=== PATIENT | female | born 1985 | race Caucasian/White ===

== ENCOUNTER 2019-04-06 09:47 | Day surgery (SDC) | payer OTHER ==
[2019-04-06] VITALS (8 sets, daily range): BP systolic 95–132; BP diastolic 57–68; PULSE 72–92; RESP 15–21; Ht 152.4 cm; Wt 82.0 kg
[~2019-04-06] VITALS: Ht 152.4 cm; Wt 82.0 kg
[2019-04-06] MEDS ORDERED: PEPCID (10:16)
[2019-04-06] MEDS ORDERED: ZYRTEC (10:16)
[2019-04-06] MEDS ORDERED: NOSE SPRAY (10:16)
--- NOTE | 2019-04-06 10:33 | PREAC ---
Date/Time of Note Date/Time of Note DATE: 04/06/19 TIME: 10:32 Anesthesia Eval and Record Evaluation Time Pre-Procedure Interview DATE: 04/06/19 TIME: 10:32 Age 34 Sex female NPO: 8 hrs Preoperative diagnosis abd pain Planned procedure egd Past Medical History Past Medical History: Includes GI: GERD, Obesity Surgery & Anesthesia Issues No known issue Meds Anticoagulation: No Beta Pa within 24 hr: No Reason Beta Pa not given: Pt. not on B-Pa Reported Medications [Nose [place]] No Conflict Check 04/06/19 [Pepcid] No Conflict Check 04/06/19 [Zyrtec] No Conflict Check 04/06/19 Meds reviewed: Yes Allergies Coded Allergies: No Known Allergy (Unverified , 04/06/19) Allergies Reviewed: Yes Labs/Studies Labs Reviewed: Reviewed by anesthesiologist test: Negative Pre-procedure Exam Airway: Adequate mouth opening, Adequate thyromental dist Mallampati: Mallampati II Teeth: Normal Lung: Normal Heart: Normal ASA Physical Status ASA physical status: 2 Emergency: None Planned Anesthetic General/MAC: Mask, MAC Pre-operative Attestations Prior to commencing anesthesia and surgery, the patient was re-evaluated, there was verification of: *The patient's identity *The results of appropriate recent lab work and preoperative vital signs *The above evaluation not changing prior to induction *Anesthetic plan, risk benefits, alternative and complications discussed with patient/family; questions answered; patient/family understands, accepts and wishes to proceed. MARTHA KERN Apr 06, 2019 10:33
[2019-04-06] MEDS ORDERED: PROPOFOL 40 ML ONE (10:37)
--- NOTE | 2019-04-06 19:30 | CONS ---
DATE OF ADMISSION: 04/06/2019 DATE OF CONSULTATION: PATIENT NAME: NIKKY BRAUN TYPE OF CONSULTATION: Preoperative gastroenterology. Dear Dr. Michelle: I thank you very much for this kind referral. HISTORY OF PRESENT ILLNESS: Ms. Nikky Braun is a 34-year-old female patient who has been referred to me for further evaluation of upper abdominal pain, not responding to therapy with Bentyl. There is no past history of peptic ulcer disease. Appetite is good. No significant weight loss. Not on n onsteroidal anti-inflammatory agents. The patient had abdominal ultrasound and she was noted to have a large gallstone. She also had fatty liver. Denies any change in the bowel habit or rectal bleedi ng. Not a hypertensive or diabetic. No heart disease, lung problem or kidney disease. SOCIAL HISTORY: Nonsmoker. No alcohol abuse. FAMILY HISTORY: No family history of gastrointestinal tract neoplasm. ALLERGIES: NO DRUG ALLERGIES. MEDICATIONS: None. PHYSICAL EXAMINATION: VITAL SIGNS: She is 5 feet tall and weighs 182 pounds. HEART: Normal heart sounds. LUNGS: Clear. ABDOMEN: Soft. No masses. Normal bowel sounds. NEUROLOGIC: Normal. IMPRESSION: 1. Upper abdominal pain, not responding to therapy. 2. Abdominal ultrasound shows a large gallstone. 3. Fatty liver. PLAN: 1. The patient was strongly advised to lose weight, have a good control of serum lipids and low-fat diet because of the fatty liver. 2. Upper endoscopic examination to rule out peptic ulcer disease. 3. If the upper endoscopy is negative or if the patient develops severe right upper quadrant pain, s he needs laparoscopic cholecystectomy. 4. Because of the obesity with a short thick neck, she needs monitored anesthesia care. The procedure and possible complications are well explained to the patient. She understands and cons ents to the procedure. I thank you once again. With warmest personal regards, Dictated By: BETH URBANO/JAIMIE Conf#: [id number] DID#: [id number]
--- NOTE | 2019-04-07 08:47 | PAC ---
Date/Time of Note Date/Time of Note DATE: 04/07/19 TIME: 08:47 Post-Anesthesia Notes Post-Anesthesia Note Last documented vital signs Vital Signs Date Temp Pulse Resp B/P (MAP) Pulse Ox O2 O2 Flow FiO2 Time Delivery Rate 04/06/19 80 20 119/57 98 Room Air 11:30 (77) 04/06/19 98.3 10:35 Activity: WNL Respiratory function: WNL Cardiovascular function: WNL Mental status: Baseline Pain reasonably controlled: Yes Hydration appropriate: Yes Nausea/Vomiting absent: Yes MARTHA KERN Apr 07, 2019 08:47
== END 2019-04-06 15:58 | disposition home or self-care (01) ==
LOC: GIL 09:47
PROVIDERS: ATTEND Internal Medicine Gastroenterology
DX: K29.30 Chronic superficial gastritis without bleeding (principal)
CPT/HCPCS: 84703; 88305; 88312